=== PATIENT | female | born 1950 | race Caucasian/White ===

== ENCOUNTER 2022-03-25 17:41 | Inpatient (IN) ==
[2022-03-25] MEDS ORDERED: IOPAMIDOL 100 ML BOTTLE IV ONE (17:42)
--- NOTE | 2022-03-25 17:45 | Emergency Department Note ---
HPI General Chief complaint: Cold/Flu Symptoms Stated complaint: COVID positive Time Seen by Provider: 03/25/22 17:42 Source: patient Mode of arrival: wheelchair Limitations: no limitations History of Present Illness HPI Narrative: 72-year-old female presenting with shortness of breath and cough for the last 4 days. Patient reports difficulty breathing, worse with exertion, and nonproductive cough recently. She went to an outside clinic today and tested positive for COVID so she was sent to the ED. Patient has a history of COPD but does not wear home oxygen. She denies fever, chest pain, or leg swelling. She also has a history of CAD and is on clopidogrel. When asked if she smokes patient states "off and on". Patient states that she did receive the Moderna COVID-vaccine but has not had a booster. Related Data Home Medications Medication Instructions Recorded Confirmed aspirin 325 mg tablet 325 mg PO HS 07/24/15 04/23/19 clopidogrel 75 mg tablet 75 mg PO DAILY 07/24/15 04/23/19 diphenhydramine 25 2 tab PO HSP PRN 07/24/15 04/23/19 mg-acetaminophen 500 mg tablet fluoxetine 20 mg capsule 60 mg PO DAILY 07/24/15 04/23/19 omeprazole 40 mg capsule,delayed 40 mg PO BIDP PRN 07/24/15 04/23/19 release pravastatin 40 mg tablet 60 mg PO HS 07/24/15 04/23/19 Previous Rx's Medication Instructions Recorded albuterol sulfate 90 mcg/actuation 2 puff INH Q4HP PRN #1 inhaler 07/26/15 aerosol inhaler alprazolam 0.5 mg tablet 1 mg PO BIDP PRN #30 tab 07/26/15 ipratropium 20 mcg-albuterol 100 2 puff INH QID #1 inhaler 07/26/15 mcg/actuation mist for inhalation lorazepam 2 mg tablet 2 mg PO Q4-6HP PRN #20 tab 12/02/16 ondansetron 4 mg disintegrating 4 mg SL Q4-6HP PRN #10 tab 12/02/16 tablet alprazolam 0.25 mg tablet 0.25 mg PO TID #3 tab 11/07/21 Allergies Allergy/AdvReac Type Severity Reaction Status Date / Time No Known Drug Allergies Allergy Verified 11/07/21 10:33 Review of Systems ROS ROS Narrative: Narrative: Constitutional: Denies fever or chills Eyes: Denies vision change ENT ED: Denies throat pain Cardiovascular: Denies chest pain or palpitations Respiratory: Reports shortness of breath, cough and wheezes Gastrointestinal: Denies abdominal pain, nausea, vomiting or diarrhea Genitourinary: Denies dysuria or hematuria Musculoskeletal: Denies back pain Integumentary: Denies rash or lesions Neurological: Denies headache or weakness Psychiatric: Denies anxiety Endocrine: Denies fatigue Hematological/Lymphatic: Denies easy bruising PFSH Narrative Patient History Narrative: Narrative: Medical/Surgical/Family History All Active Problems (Updated 03/25/22 @ 19:09 by Roland Gramajo MD) Mass of upper lobe of right lung (Acute) Anxiety (Acute) Abdominal pain (Acute) COVID-19 (Acute) Hypoxia (Acute) COPD exacerbation (Acute) Anxiety (Acute) COPD (chronic obstructive pulmonary disease) (Acute) Acute exacerbation of chronic obstructive airways disease (Acute) Hypoxia (Acute) Smoker (Acute) CAD (coronary artery disease) (Acute) Gastroenteritis (Acute) Superior mesenteric artery atherosclerosis (Acute) Acute bronchitis (Acute) Left leg pain (Acute) Left leg swelling (Acute) Pain of left lower leg (Acute) Medical History Acute exacerbation of chronic obstructive airways disease Anxiety CAD (coronary artery disease) COPD (chronic obstructive pulmonary disease) Gastroenteritis Hypoxia Smoker Superior mesenteric artery atherosclerosis Social History Smoking Status: Former smoker Alcohol Intake Frequency: does not drink Substance Use: marijuana Exam Narrative Narrative: Narrative: General Limitations: no limitations General appearance: Present alert and other (In mild respiratory distress) Head Head: Present atraumatic and normocephalic Eye Eye: Present normal appearance and EOMI; Absent scleral icterus or conjunctival injection ENT ENT: Present mucous membranes moist Neck Neck: Present normal inspection, full ROM and trachea midline; Absent meningismus or lymphadenopathy Chest Chest: Present symmetric chest wall rise Respiratory Respiratory: Present respiratory distress and wheezes (Inspiratory and expiratory wheezes noted in all lung barney); Absent rales/crackles, stridor, accessory muscle use or prolonged expiratory phase Cardiovascular Cardiovascular: Present normal rhythm and tachycardia; Absent systolic murmur or diastolic murmur Adbominal Abdominal: Present soft; Absent distention, tenderness, guarding, rebound, rigidity, organomegaly or mass Extremities Extremities: Absent pretibial edema Back Back: Present normal inspection Neurological Neurological: Present alert and oriented X3; Absent motor sensory deficit Psychiatric Psychiatric: Present normal affect and normal mood Skin Skin: Present warm (WNL) and dry Course Vital Signs Vital signs: Vital Signs Temperature 97.9 F 03/25/22 17:42 Pulse Rate 121 H 03/25/22 17:42 Respiratory Rate 28 H 03/25/22 17:42 Blood Pressure 147/102 03/25/22 17:42 Pulse Oximetry (%) 82 L 03/25/22 17:42 Temperature 97.9 F 03/25/22 18:28 Pulse Rate 110 H 03/25/22 18:28 Respiratory Rate 22 03/25/22 18:28 Blood Pressure 137/71 03/25/22 18:09 Pulse Oximetry (%) 96 03/25/22 18:25 MDM MDM Narrative Medical decision making narrative: 72-year-old female presenting with cough and shortness of breath. She tested positive at an outside clinic for COVID. On arrival here she was noted to be hypoxic to the low 80s on room air. She was also tachycardic. Not on home O2. She was placed on O2 via nasal cannula with improvement in her saturations to the mid 90s. She does have diffuse wheezing on exam. IV Solu-Medrol and DuoNeb treatment ordered. Will obtain labs, EKG, chest x-ray, and reevaluate. 1907: EKG with no ischemic changes. Rapid COVID test is positive here. Chest x-ray shows no evidence of pneumonia. Labs are pending and patient may need admission for COPD exacerbation, hypoxia, and COVID 19. Patient signed out to Dr. Alessandra weaver MD. Lab Data Result diagrams: 03/25/22 18:18 03/25/22 18:18 Labs: Lab Results 03/25/22 Range/Units 18:18 WBC 10.1 (4.5-11.0) K/mcL RBC 4.33 (3.59-5.38) M/mcL Hgb 11.9 (11.2-15.7) g/dL Hct 36.3 (34.1-44.9) % MCV 83.8 (80.0-100.0) fL MCH 27.5 (26.0-34.0) pg MCHC 32.8 (31.0-36.0) g/dL RDW 15.2 H (11.5-14.5) % Plt Count 228 (140-440) K/mcL MPV 11.1 H (7.4-10.4) fL Neut % (Auto) 85.9 H (38.0-78.0) % Lymph % (Auto) 7.0 L (15.5-49.0) % [place] % (Auto) 6.9 (1.0-12.0) % Eos % (Auto) 0 (0.0-7.0) % Baso % (Auto) 0.2 (0.0-2.0) % Lymph # (Auto) 0.71 L (1.50-4.80) K/mcL [place] # (Auto) 0.70 (0.10-0.90) K/mcL Eos # (Auto) 0 (0.00-0.70) K/mcL Baso # (Auto) 0.02 (0.00-0.30) K/mcL Absolute Neutrophils 8.68 H (1.80-8.00) K/mcL ED POC Tests ED POC Tests: GUILLERMO - Influenza A Negative GUILLERMO - Influenza B Negative GUILLERMO - SARS Antigen Positive Radiology Data Radiology results reviewed: Yes I reviewed the patient's radiology results. Radiology results narrative: Ordering Physician:Roland Gramajo M.D. Date of Service:03/25/22 Procedure(s):XR chest 1V portable CLINICAL INFORMATION: Dyspnea and cough COMPARISON: None. TECHNIQUE: PA and Lateral views FINDINGS: The heart size, mediastinum and pulmonary vessels are unremarkable. Minor bibasilar atelectasis noted.. There are no effusions. The bones and soft tissues are within normal limits. IMPRESSION: Minor bibasilar atelectasis. Interpreted and Authenticated by: Silvano Friedman 03/25/22 34 34 Hogshead Stripper: <Electronically signed by Silvano Friedman M.D. in [place]> 03/25/221835 EKG Data EKG #1: EKG attestation: Yes I reviewed and interpreted this EKG. and Yes There are no EKG findings of acute coronary syndrome EKG results narrative: Sinus tachycardia at [address] elevation or depression. Interpretation: no acute changes Discharge Plan Patient/Caregiver Discharge Instructions Pt seen by CERAMICS MACHINE OPERATOR/PA only: No Clinical Impression: COVID-19, Hypoxia, COPD exacerbation Patient Disposition: Still a Patient Follow up with: Estefany Murphy MD [Primary Care Provider] - Prescriptions: No Action pravastatin 40 MG tablet 60 mg PO HS 0RF clopidogrel 75 MG tablet 75 mg PO DAILY 0RF omeprazole 40 MG capsule,delayed release(DR/EC) 40 mg PO BIDP PRN (Reason: Heartburn) 0RF fluoxetine 20 MG capsule 60 mg PO DAILY 0RF aspirin 325 MG tablet 325 mg PO HS 0RF diphenhydramine-acetaminophen 1 TAB tablet 2 tab PO HSP PRN (Reason: Pain) 0RF alprazolam 0.5 MG tablet 1 mg PO BIDP PRN (Reason: Anxiety) Qty: 30 0RF albuterol sulfate 1 PUFF inhaler 2 puff INH Q4HP PRN (Reason: Shortness Of Breath) Qty: 1 1RF Rx Instructions: USE WITH SPACER ipratropium-albuterol 1 PUFF inhaler 2 puff INH QID Qty: 1 1RF Rx Instructions: USE WITH SPACER lorazepam 2 MG tablet 2 mg PO Q4-6HP PRN (Reason: Anxiety) Qty: 20 0RF ondansetron 4 MG tablet 4 mg SL Q4-6HP PRN (Reason: Nausea And Vomiting) Qty: 10 0RF alprazolam 0.25 mg tablet 0.25 mg PO TID Qty: 3 0RF
[2022-03-25] MEDS ORDERED: methylPREDNISolone SOD SUCC 125 MG/2 ML VIAL IV ONE (17:52)
[2022-03-25] MEDS ORDERED: IPRATROPIUM/ALBUTEROL 3 ML AMPUL.NEB NEB ONE (17:52)
--- NOTE | 2022-03-25 18:39 | XRay Report ---
CLINICAL INFORMATION: Dyspnea and cough COMPARISON: None. TECHNIQUE: PA and Lateral views FINDINGS: The heart size, mediastinum and pulmonary vessels are unremarkable. Minor bibasilar atelectasis noted.. There are no effusions. The bones and soft tissues are within normal limits. IMPRESSION: Minor bibasilar atelectasis. Interpreted and Authenticated by: Silvano Friedman 03/25/22
[2022-03-25 18:52] LABS: Basophils # (Auto) 0.02 K/mcL (0.00-0.30); Basophils % (Auto) 0.2 % (0.0-2.0); Eosinophils # (Auto) 0 K/mcL (0.00-0.70); Eosinophils % (Auto) 0 % (0.0-7.0); Hematocrit 36.3 % (34.1-44.9); Hemoglobin 11.9 g/dL (11.2-15.7); Lymphocytes # (Auto) 0.71 K/mcL (1.50-4.80); Mean Cell Volume 83.8 fL (80.0-100.0); Mean Corpuscular HGB Conc 32.8 g/dL (31.0-36.0); Mean Platelet Volume 11.1 fL (7.4-10.4); Monocytes % (Auto) 6.9 % (1.0-12.0); Neutrophils % (Auto) 85.9 % (38.0-78.0); Platelet Count 228 K/mcL (140-440); RBC 4.33 M/mcL (3.59-5.38); Red Cell Distribution Width 15.2 % (11.5-14.5); WBC 10.1 K/mcL (4.5-11.0)
[2022-03-25 19:13] LABS: ALT/SGPT 37 U/L (<40); AST/SGOT 34 U/L (<32); Albumin 3.3 gm/dL (3.2-5.2); Albumin/Globulin Ratio 0.9 (1.0-2.3); Alkaline Phosphatase 99 U/L (39-117); Bilirubin,Total 0.3 mg/dL (0.1-1.0); Blood Urea Nitrogen 15 mg/dL (8-23); Carbon Dioxide 27 mmol/L (22-30); Chloride 97 mmol/L (96-108); Globulin 3.8 gm/dL (2.2-3.7); Glomerular Filtration Rate 74; Glucose 209 mg/dL (70-105)
--- NOTE | 2022-03-25 19:37 | Emergency Department Note ---
HPI General Chief complaint: Cold/Flu Symptoms Stated complaint: COVID positive Time Seen by Provider: 03/25/22 17:42 Source: patient Mode of arrival: wheelchair Limitations: no limitations History of Present Illness HPI Narrative: Narrative: Related Data Home Medications Medication Instructions Recorded Confirmed aspirin 325 mg tablet 325 mg PO HS 07/24/15 04/23/19 clopidogrel 75 mg tablet 75 mg PO DAILY 07/24/15 04/23/19 diphenhydramine 25 2 tab PO HSP PRN 07/24/15 04/23/19 mg-acetaminophen 500 mg tablet fluoxetine 20 mg capsule 60 mg PO DAILY 07/24/15 04/23/19 omeprazole 40 mg capsule,delayed 40 mg PO BIDP PRN 07/24/15 04/23/19 release pravastatin 40 mg tablet 60 mg PO HS 07/24/15 04/23/19 Previous Rx's Medication Instructions Recorded albuterol sulfate 90 mcg/actuation 2 puff INH Q4HP PRN #1 inhaler 07/26/15 aerosol inhaler alprazolam 0.5 mg tablet 1 mg PO BIDP PRN #30 tab 07/26/15 ipratropium 20 mcg-albuterol 100 2 puff INH QID #1 inhaler 07/26/15 mcg/actuation mist for inhalation lorazepam 2 mg tablet 2 mg PO Q4-6HP PRN #20 tab 12/02/16 ondansetron 4 mg disintegrating 4 mg SL Q4-6HP PRN #10 tab 12/02/16 tablet alprazolam 0.25 mg tablet 0.25 mg PO TID #3 tab 11/07/21 Allergies Allergy/AdvReac Type Severity Reaction Status Date / Time No Known Drug Allergies Allergy Verified 11/07/21 10:33 Review of Systems ROS ROS Narrative: Narrative: Constitutional: Denies fever or chills Eyes: Denies vision change ENT ED: Denies throat pain Cardiovascular: Denies chest pain or palpitations Respiratory: Reports shortness of breath, cough and wheezes Gastrointestinal: Denies abdominal pain, nausea, vomiting or diarrhea Genitourinary: Denies dysuria or hematuria Musculoskeletal: Denies back pain Integumentary: Denies rash or lesions Neurological: Denies headache or weakness Psychiatric: Denies anxiety Endocrine: Denies fatigue Hematological/Lymphatic: Denies easy bruising PFSH Narrative Patient History Narrative: Narrative: Medical/Surgical/Family History All Active Problems (Updated 03/25/22 @ 19:09 by Roland Gramajo MD) Mass of upper lobe of right lung (Acute) Anxiety (Acute) Abdominal pain (Acute) COVID-19 (Acute) Hypoxia (Acute) COPD exacerbation (Acute) Anxiety (Acute) COPD (chronic obstructive pulmonary disease) (Acute) Acute exacerbation of chronic obstructive airways disease (Acute) Hypoxia (Acute) Smoker (Acute) CAD (coronary artery disease) (Acute) Gastroenteritis (Acute) Superior mesenteric artery atherosclerosis (Acute) Acute bronchitis (Acute) Left leg pain (Acute) Left leg swelling (Acute) Pain of left lower leg (Acute) Medical History Acute exacerbation of chronic obstructive airways disease Anxiety CAD (coronary artery disease) COPD (chronic obstructive pulmonary disease) Gastroenteritis Hypoxia Smoker Superior mesenteric artery atherosclerosis Social History Smoking Status: Former smoker Alcohol Intake Frequency: does not drink Substance Use: marijuana Exam Narrative Narrative: Narrative: General Limitations: no limitations Course Vital Signs Vital signs: Vital Signs Temperature 97.9 F 03/25/22 17:42 Pulse Rate 121 H 03/25/22 17:42 Respiratory Rate 28 H 03/25/22 17:42 Blood Pressure 147/102 03/25/22 17:42 Pulse Oximetry (%) 82 L 03/25/22 17:42 Temperature 97.9 F 03/25/22 18:28 Pulse Rate 116 H 03/25/22 20:27 Respiratory Rate 28 H 03/25/22 20:27 Blood Pressure 199/108 03/25/22 20:27 Pulse Oximetry (%) 91 03/25/22 20:27 [facility] MDM Narrative Medical decision making narrative: Narrative: KAT: This patient was signed out to me by Dr. Roland Gramajo at the end of his shift and I have assumed care of and will determine disposition. Please see H&P by Dr. Watkins. In brief 72-year-old female with COVID infection and hypoxia presented to the ER. She received albuterol nebulized treatment for her wheezing and Solu-Medrol 125 mg IV for her reactive airway disease. She had pulse ox in the high 80s and requires hospitalization. Laboratory results reveal a normal white count with a normal hemoglobin. She has normal electrolytes. Procalcitonin was elevated at 0.38. Chest x-ray showed basilar atelectasis. Consult was placed to Dr. Diallo ([id number]) to discuss admission. 1936: Disc'd with Dr. Diallo. He will come down to the ER to evaluate the patient. Her pulse ox was 82% on room air when she arrived and it is 96% on [address] Diallo. Patient will be admitted. Lab Data Result diagrams: 03/25/22 18:18 03/25/22 18:18 Labs: Lab Results 03/25/22 03/25/22 03/25/22 Range/Units 18:18 18:18 18:18 WBC 10.1 (4.5-11.0) K/mcL RBC 4.33 (3.59-5.38) M/mcL Hgb 11.9 (11.2-15.7) g/dL Hct 36.3 (34.1-44.9) % MCV 83.8 (80.0-100.0) fL MCH 27.5 (26.0-34.0) pg MCHC 32.8 (31.0-36.0) g/dL RDW 15.2 H (11.5-14.5) % Plt Count 228 (140-440) K/mcL MPV 11.1 H (7.4-10.4) fL Neut % (Auto) 85.9 H (38.0-78.0) % Lymph % (Auto) 7.0 L (15.5-49.0) % [place] % (Auto) 6.9 (1.0-12.0) % Eos % (Auto) 0 (0.0-7.0) % Baso % (Auto) 0.2 (0.0-2.0) % Lymph # (Auto) 0.71 L (1.50-4.80) K/mcL [place] # (Auto) 0.70 (0.10-0.90) K/mcL Eos # (Auto) 0 (0.00-0.70) K/mcL Baso # (Auto) 0.02 (0.00-0.30) K/mcL Absolute Neutrophils 8.68 H (1.80-8.00) K/mcL D-Dimer (0.27-0.50) ug/mL VBG Lactic Acid 1.2 (0.5-2.0) mmol/L Sodium 135 (133-145) mmol/L Potassium 3.4 (3.3-5.1) mmol/L Chloride 97 (96-108) mmol/L Carbon Dioxide 27 (22-30) mmol/L Anion Gap 11.0 (8.0-16.0) BUN 15 (8-23) mg/dL Creatinine 0.8 (0.6-1.1) mg/dL GFR Calculation 74 Glucose 209 H (70-105) mg/dL Calcium 9.0 (8.6-10.4) mg/dL Ferritin (30.0-400.0) ng/mL Total Bilirubin 0.3 (0.1-1.0) mg/dL AST 34 H (<32) U/L ALT 37 (<40) U/L Alkaline Phosphatase 99 (39-117) U/L C-Reactive Protein (0.03-0.80) mg/dL Total Protein 7.1 (5.9-8.4) gm/dL Albumin 3.3 (3.2-5.2) gm/dL Globulin 3.8 H (2.2-3.7) gm/dL Albumin/Globulin Ratio 0.9 L (1.0-2.3) Procalcitonin (<0.10) ng/mL 03/25/22 03/25/22 03/25/22 Range/Units 18:18 18:18 18:18 WBC (4.5-11.0) K/mcL RBC (3.59-5.38) M/mcL Hgb (11.2-15.7) g/dL Hct (34.1-44.9) % MCV (80.0-100.0) fL MCH (26.0-34.0) pg MCHC (31.0-36.0) g/dL RDW (11.5-14.5) % Plt Count (140-440) K/mcL MPV (7.4-10.4) fL Neut % (Auto) (38.0-78.0) % Lymph % (Auto) (15.5-49.0) % [place] % (Auto) (1.0-12.0) % Eos % (Auto) (0.0-7.0) % Baso % (Auto) (0.0-2.0) % Lymph # (Auto) (1.50-4.80) K/mcL [place] # (Auto) (0.10-0.90) K/mcL Eos # (Auto) (0.00-0.70) K/mcL Baso # (Auto) (0.00-0.30) K/mcL Absolute Neutrophils (1.80-8.00) K/mcL D-Dimer 1.85 H (0.27-0.50) ug/mL VBG Lactic Acid (0.5-2.0) mmol/L Sodium (133-145) mmol/L Potassium (3.3-5.1) mmol/L Chloride (96-108) mmol/L Carbon Dioxide (22-30) mmol/L Anion Gap (8.0-16.0) BUN (8-23) mg/dL Creatinine (0.6-1.1) mg/dL GFR Calculation Glucose (70-105) mg/dL Calcium (8.6-10.4) mg/dL Ferritin 126.9 (30.0-400.0) ng/mL Total Bilirubin (0.1-1.0) mg/dL AST (<32) U/L ALT (<40) U/L Alkaline Phosphatase (39-117) U/L C-Reactive Protein 20.80 H (0.03-0.80) mg/dL Total Protein (5.9-8.4) gm/dL Albumin (3.2-5.2) gm/dL Globulin (2.2-3.7) gm/dL Albumin/Globulin Ratio (1.0-2.3) Procalcitonin 0.38 H (<0.10) ng/mL ED POC Tests ED POC Tests: GUILLERMO - Influenza A Negative GUILLERMO - Influenza B Negative GUILLERMO - SARS Antigen Positive Discharge Plan Patient/Caregiver Discharge Instructions Pt seen by ROLL CARRIER/PA only: No Clinical Impression: COVID-19, Hypoxia, COPD exacerbation Patient Disposition: Xfer As Inpt ([facility]) Condition: Fair Follow up with: Estefany Murphy MD [Primary Care Provider] - Prescriptions: No Action pravastatin 40 MG tablet 60 mg PO HS 0RF clopidogrel 75 MG tablet 75 mg PO DAILY 0RF omeprazole 40 MG capsule,delayed release(DR/EC) 40 mg PO BIDP PRN (Reason: Heartburn) 0RF fluoxetine 20 MG capsule 60 mg PO DAILY 0RF aspirin 325 MG tablet 325 mg PO HS 0RF diphenhydramine-acetaminophen 1 TAB tablet 2 tab PO HSP PRN (Reason: Pain) 0RF alprazolam 0.5 MG tablet 1 mg PO BIDP PRN (Reason: Anxiety) Qty: 30 0RF albuterol sulfate 1 PUFF inhaler 2 puff INH Q4HP PRN (Reason: Shortness Of Breath) Qty: 1 1RF Rx Instructions: USE WITH SPACER ipratropium-albuterol 1 PUFF inhaler 2 puff INH QID Qty: 1 1RF Rx Instructions: USE WITH SPACER lorazepam 2 MG tablet 2 mg PO Q4-6HP PRN (Reason: Anxiety) Qty: 20 0RF ondansetron 4 MG tablet 4 mg SL Q4-6HP PRN (Reason: Nausea And Vomiting) Qty: 10 0RF alprazolam 0.25 mg tablet 0.25 mg PO TID Qty: 3 0RF
[2022-03-25] MEDS ORDERED: REMDESIVIR 200 MG in 0.9 % SODIUM CHLORIDE 250 ML IV ONE (19:51)
--- NOTE | 2022-03-25 20:17 | Internal Med History&Physical ---
HPI History of Present Illness Patient information: Note initiated : 03/25/22 at 7:58 pm Service Date, if different from initiated Date: [] Patient: Ca Posada a 72 y/o F admitted on for COVID positive. Chief Complaint: [] History of present illness: Ms. Posada is a 72 year old F Presents to the ED from the urgent care clinic for hypoxia. Patient states she started getting ill on Monday with cough and productive cough of thick clear sputum. 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 Patient's has had worsening weakness complains of being extremely tired. Complains of increasing shortness of breath. She is wheezy. Also complained of fevers. She has chest wall pain because of her coughing. She was found to be 82% in our ED. Had a flu screen that was negative but the COVID test was positive She was vaccinated but has not had the booster. In the ED she was placed on oxygen she was tachypneic and tachycardic. Chest x-ray per my read as some interstitial markings. Patient has a history of COPD but is not on home oxygen. She has history of CAD with stents. History of lung cancer Review of Systems: Pertinent positives as above. Denies headache/chills/nausea/vomiting/ abdominal pain/diarrhea. Remaining 10 point review of system reviewed negative PFSH PFSH All Active Problems (Updated 03/25/22 @ 19:09 by Roland Gramajo MD) Mass of upper lobe of right lung (Acute) Anxiety (Acute) Abdominal pain (Acute) COVID-19 (Acute) Hypoxia (Acute) COPD exacerbation (Acute) Anxiety (Acute) COPD (chronic obstructive pulmonary disease) (Acute) Acute exacerbation of chronic obstructive airways disease (Acute) Hypoxia (Acute) Smoker (Acute) CAD (coronary artery disease) (Acute) Gastroenteritis (Acute) Superior mesenteric artery atherosclerosis (Acute) Acute bronchitis (Acute) Left leg pain (Acute) Left leg swelling (Acute) Pain of left lower leg (Acute) Medical History Acute exacerbation of chronic obstructive airways disease Anxiety CAD (coronary artery disease) COPD (chronic obstructive pulmonary disease) Gastroenteritis Hypoxia Smoker Superior mesenteric artery atherosclerosis Social History (Updated 04/23/19 @ 17:28 by Sidney Salvador PA-C) alcohol intake frequency: does not drink substance use type: marijuana MEDS/ALLERGIES Home Medications and Allergies Home Medications Medication Instructions Recorded Confirmed Type aspirin 325 mg tablet 325 mg PO HS 07/24/15 03/25/22 History clopidogrel 75 mg tablet 75 mg PO DAILY 07/24/15 03/25/22 History diphenhydramine 25 2 tab PO HSP PRN 07/24/15 03/25/22 History mg-acetaminophen 500 mg tablet fluoxetine 20 mg capsule 60 mg PO DAILY 07/24/15 03/25/22 History omeprazole 40 mg capsule,delayed 40 mg PO BIDP PRN 07/24/15 04/23/19 History release pravastatin 40 mg tablet 80 mg PO HS 07/24/15 03/25/22 History albuterol sulfate 90 mcg/actuation 2 puff INH Q4HP PRN #1 inhaler 07/26/15 03/25/22 Rx aerosol inhaler alprazolam 0.5 mg tablet 1 mg PO BIDP PRN #30 tab 07/26/15 04/23/19 Rx ipratropium 20 mcg-albuterol 100 2 puff INH QID #1 inhaler 07/26/15 04/23/19 Rx mcg/actuation mist for inhalation lorazepam 2 mg tablet 2 mg PO Q4-6HP PRN #20 tab 12/02/16 04/23/19 Rx ondansetron 4 mg disintegrating 4 mg SL Q4-6HP PRN #10 tab 12/02/16 04/23/19 Rx tablet alprazolam 0.25 mg tablet 0.25 mg PO TID #3 tab 11/07/21 Rx fluticasone furoate 100 1 puff CONTINUOUS INHALATION QDAY 03/25/22 03/25/22 History mcg-vilanterol 25 mcg/dose inhalation powder (Breo Ellipta) nitroglycerin 0.4 mg sublingual 0.4 mg SUBLINGUAL PRN PRN 03/25/22 03/25/22 History tablet (Nitrostat) pregabalin 50 mg capsule (Lyrica) 50 mg PO TID 03/25/22 03/25/22 History Allergies Allergy/AdvReac Type Severity Reaction Status Date / Time No Known Drug Allergies Allergy Verified 11/07/21 10:33 EXAM Constitutional Vitals: Temp Pulse Resp BP Pulse Ox 97.9 F 110 H 22 137/71 96 03/25/22 18:28 03/25/22 18:28 03/25/22 18:28 03/25/22 18:09 03/25/22 19:18 Exam: General: Alert, Awake, No acute Distress, obese Eyes/N/T: EOMI, PERRL, Head/Neck: neck supple, normocephalic atraumatic CV: RRR, No murmurs, normal s1/s2 Pulm: Wheezing b/l, no rales Abd: soft, nontender, +BS x4 Ext: no clubbing/cyanosis/edema Neuro: Alert, no focal deficits, moves all extremities, CN 2-12 grossly intact, symmetrical strength b/l upper/lower, sensations intact b/l upper/lower Skin: warm/dry DATA Data Completed and Pending Labs: Labs from last 24 hours 03/25/22 03/25/22 03/25/22 18:18 18:18 18:18 WBC RBC Hgb Hct MCV MCH MCHC RDW Plt Count MPV Neut % (Auto) Lymph % (Auto) [place] % (Auto) Eos % (Auto) Baso % (Auto) Lymph # (Auto) [place] # (Auto) Eos # (Auto) Baso # (Auto) Absolute Neutrophils D-Dimer Pending VBG Lactic Acid Sodium Potassium Chloride Carbon Dioxide Anion Gap BUN Creatinine GFR Calculation Glucose Calcium Ferritin Pending Total Bilirubin AST ALT Alkaline Phosphatase C-Reactive Protein Pending Total Protein Albumin Globulin Albumin/Globulin Ratio Procalcitonin 0.38 H 03/25/22 03/25/22 03/25/22 18:18 18:18 18:18 WBC 10.1 RBC 4.33 Hgb 11.9 Hct 36.3 MCV 83.8 MCH 27.5 MCHC 32.8 RDW 15.2 H Plt Count 228 MPV 11.1 H Neut % (Auto) 85.9 H Lymph % (Auto) 7.0 L [place] % (Auto) 6.9 Eos % (Auto) 0 Baso % (Auto) 0.2 Lymph # (Auto) 0.71 L [place] # (Auto) 0.70 Eos # (Auto) 0 Baso # (Auto) 0.02 Absolute Neutrophils 8.68 H D-Dimer VBG Lactic Acid 1.2 Sodium 135 Potassium 3.4 Chloride 97 Carbon Dioxide 27 Anion Gap 11.0 BUN 15 Creatinine 0.8 GFR Calculation 74 Glucose 209 H Calcium 9.0 Ferritin Total Bilirubin 0.3 AST 34 H ALT 37 Alkaline Phosphatase 99 C-Reactive Protein Total Protein 7.1 Albumin 3.3 Globulin 3.8 H Albumin/Globulin Ratio 0.9 L Procalcitonin A/P Narrative A/P Narrative: A: *AECOPD: *COVID Infection: *Acute hypoxic respiratory failure: 2/2 above *h/o Lung CA: *CAD w/stent: *Depression/anxiety: *GERD: *Obesity: BMI 39 *Tobacco abuse: She is cutting down P: -Dexa/Rem -empric abx -O2 supp(wean) -steroids (wean) -IS/Acapella, prn Nebs, RT -f/u inflammatory markers -Smoking cessation counseling > 3 minutes -ppx: lovenox / H2 full code Time Spent With Patient Time: Total time spent is greater than 50% in coordination of care (as documented) at patient's floor/unit and/or counseling patient: Total time spent with greater than 50% in coordination of care (as documented) at patient's floor/unit and/or counseling patient:: Greater than 70 minutes
[2022-03-25 20:19] LABS: Ferritin 126.9 ng/mL (30.0-400.0)
[2022-03-25] MEDS ORDERED: SENNOSIDES 1 TABLET PO PRN (21:50)
[2022-03-25] MEDS ORDERED: IPRATROPIUM/ALBUTEROL 3 ML AMPUL.NEB NEB PRN (21:50)
[2022-03-25] MEDS ORDERED: POLYETHYLENE GLYCOL 3350 17 GM PACKET PO PRN (21:50)
[2022-03-25] MEDS ORDERED: MAGNESIUM SULFATE 2 GM/50 ML BAG IV PRN (21:50)
[2022-03-25] MEDS ORDERED: ONDANSETRON 4 MG/2 ML VIAL IV PRN (21:50)
[2022-03-25] MEDS ORDERED: ACETAMINOPHEN 325 MG TABLET PO PRN (21:50)
[2022-03-25] MEDS ORDERED: POTASSIUM CHLORIDE 40 MEQ in DEXTROSE 5% IN WATER 500 ML IV PRN (21:50)
[2022-03-25] MEDS ORDERED: REMDESIVIR 100 MG in 0.9 % SODIUM CHLORIDE 250 ML IV SCH (21:50)
[2022-03-25] MEDS ORDERED: POTASSIUM CHLORIDE 20 MEQ TABLET PO PRN ×2 (21:50)
[2022-03-25] MEDS: IPRATROPIUM/ALBUTEROL 3 ML AMPUL.NEB NEB SCH (21:53)
[2022-03-25] MEDS ORDERED: NITROGLYCERIN 0.4 MG TAB.SUBL SL PRN (21:59)
[2022-03-25] MEDS ORDERED: ACETAMINOPHEN/DIPHENHYDRAMINE 1 TABLET PO PRN (21:59)
[2022-03-25 22:03] LABS: Hemoglobin A1C 7.4 % Hgb (4.0-6.0)
[2022-03-25] MEDS: DOCUSATE SODIUM 100 MG CAPSULE PO SCH (23:10)
[2022-03-25] MEDS: AZITHROMYCIN 500 MG in DEXTROSE 5% IN WATER 250 ML IV SCH (23:38)
[2022-03-25] MEDS: 0.9 % SODIUM CHLORIDE 10 ML SYRINGE IV SCH (23:39)
[2022-03-25] MEDS: FAMOTIDINE 20 MG TABLET PO SCH (23:39)
[2022-03-26] MEDS: 0.9 % SODIUM CHLORIDE 10 ML SYRINGE IV SCH ×3 (05:24→20:15)
--- NOTE | 2022-03-26 06:10 | Cat Scan Report ---
CLINICAL INFORMATION: Elevated d-dimer covid positive. Dyspnea COMPARISON: 10/15/[address] noncontrast TECHNIQUE: 80ml of Isovue-370 were injected intravenously. Using SmartPrep to maximize pulmonary artery opacification, .625mm helical slices were obtained from the lung apices through the lung bases. Following reconstruction, 2.5 mm sagittal, coronal, and axial reformations were processed. The exam was reviewed at mediastinal, lung, and bone windows. The exam was performed using radiation dose optimization techniques including, but not limited to, automated exposure control, adjustment of the mA and/or kV according to patient size and use of iterative reconstruction technique. FINDINGS: Motion artifact laterally degrades the study quality. Pulmonary parenchymal windows show moderate scattered tree-in-bud infiltrates within the right upper, right middle and both lower lobes which are new from the comparison CT 1.5 years prior. Moderate groundglass infiltrates in both paramediastinal upper lobes are also new. A pleural-based mass, in the posterior segment of the right upper lobe has actually involuted modestly since the CT 1.5 years ago indicating this is inflammation/fibrosis and not malignant. On the previous exam, it measured 2.5 x 2.[address], it is 2.3 x 1.2 cm. Mediastinal windows show the heart is mildly enlarged with heavy calcific plaque in the proximal coronary arteries particularly the left main and proximal LAD. The thoracic aorta is normal diameter with moderate fibrofatty calcific plaque. Pulmonary arteries are suboptimally opacified. There is no evidence of central emboli. Higher order pulmonary emboli cannot be excluded on basis of this study however. Esophagus is grossly normal. No mediastinal adenopathy. Thyroid is diminutive but shows no abnormality. Bone windows show mild L2 compression fracture is chronic. No other osseous abnormalities. Superior abdominal images show a stable 8 cm broad mouth epigastric hernia consisting only mesenteric fat. A 13 mm cholesterol stone is seen within the gallbladder fundus. IMPRESSION: 1. . patchy tree-in-bud infiltrates throughout both upper, right middle and both lower lobes which are new from a comparison CT 1.5 years ago. This could indicate pneumonia.: Covid positivity acknowledged. Aspiration pneumonia would be less likely. 2. A 2.2 cm pleural-based mass in the posterior segment right lower lobe shows modest involution since the CT 1.5 years ago. This should be considered inflammatory and possibly organizing into fibrosis. No evidence of pulmonary malignancy 3. No evidence of central pulmonary embolus. Study is suboptimal due to contrast bolus dynamics and motion artifact. 4. 8 cm epigastric hernia containing only mesenteric fat. This is unchanged from a study 1.5 years ago 5. 13 mm cholesterol stone in the gallbladder fundus. Interpreted and Authenticated by: Silvano Friedman 03/26/22
[2022-03-26 06:30] LABS: ALT/SGPT 42 U/L (<40); AST/SGOT 44 U/L (<32); Albumin 3.8 gm/dL (3.2-5.2); Albumin/Globulin Ratio 1.1 (1.0-2.3); Alkaline Phosphatase 111 U/L (39-117); Bilirubin,Direct < 0.2 mg/dL (0-0.3); Bilirubin,Total 0.2 mg/dL (0.1-1.0); Blood Urea Nitrogen 15 mg/dL (8-23); Calcium 9.1 mg/dL (8.6-10.4); Carbon Dioxide 25 mmol/L (22-30); Chloride 100 mmol/L (96-108); Globulin 3.5 gm/dL (2.2-3.7); Glomerular Filtration Rate 87; Glucose 238 mg/dL (70-105); Lactate Dehydrogenase 258 U/L (135-225); Phosphorous 2.7 mg/dL (2.5-4.5); Triglycerides 106 mg/dL (<150); Uric Acid 6.1 mg/dL (2.5-8.0)
[2022-03-26] MEDS: DOCUSATE SODIUM 100 MG CAPSULE PO SCH ×3 (07:53→20:43)
[2022-03-26] MEDS: ENOXAPARIN 40 MG/0.4 ML SYRINGE SQ SCH (07:53)
[2022-03-26] MEDS: PREGABALIN 25 MG CAPSULE PO SCH ×5 (07:53→20:44)
[2022-03-26] MEDS: FLUoxetine HCL 20 MG CAPSULE PO SCH (07:54)
[2022-03-26] MEDS: FLUTICASONE FUROATE VILANTEROL INH SCH (07:54)
[2022-03-26] MEDS: CLOPIDOGREL 75 MG TABLET PO SCH (07:54)
[2022-03-26] MEDS: FAMOTIDINE 20 MG TABLET PO SCH ×3 (07:54→20:45)
[2022-03-26] MEDS ORDERED: DEXTROSE 50% 50 ML VIAL IV PRN (08:13)
[2022-03-26] MEDS ORDERED: DEXTROSE 31 GM ORAL.SUSP PO PRN (08:13)
--- NOTE | 2022-03-26 08:18 | Internal Med Progress Note ---
SUBJECTIVE Subjective Patient information: Note initiated : 03/26/22 at 8:09 am Service Date, if different from initiated Date: [] Patient: Ca Posada a 72 y/o F admitted on 03/25/22 for COVID positive. Chief Complaint: [] Interval history: History of present illness: Ms. Posada is a 72 year old F Presents to the ED from the urgent care clinic for hypoxia. Patient states she started getting ill on Monday with cough and productive cough of thick clear sputum. 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 Patient's has had worsening weakness complains of being extremely tired. Complains of increasing shortness of breath. She is wheezy. Also complained of fevers. She has chest wall pain because of her coughing. She was found to be 82% in our ED. Had a flu screen that was negative but the COVID test was positive She was vaccinated but has not had the booster. In the ED she was placed on oxygen she was tachypneic and tachycardic. Chest x-ray per my read as some interstitial markings. Patient has a history of COPD but is not on home oxygen. She has history of CAD with stents. History of lung cancer 03/26 Patient says that she developed a cough and says her cough shortness of breath has not improved. Mildly tachycardic and tachypneic. She does have significant anxiety and does complain of chronic pain as well. CT read as bilateral infiltrates tree-in-bud infiltrates Review of Systems: denies headache/fever/chills/nausea/vomiting/chest or abdominal pain/diarrhea. Otherwise see above. Constitutional Vitals: Vital Signs Temp Pulse Resp BP Pulse Ox 97.4 F 95 H 24 H 151/100 95 03/26/22 04:01 03/26/22 07:01 03/26/22 07:01 03/26/22 07:01 03/26/22 07:01 Period Temp Pulse Resp BP Sys/Nunes Pulse Ox Last 24 Hr 97.4 F-97.9 F 95-121 18-41 137-199/71-156 82-98 Intake and Output 03/25/22 03/26/22 03/26/22 21:59 05:59 13:59 Intake Total 20 880 Output Total 200 Balance 20 680 Weight 98.883 kg Intake & Output: Intake & Output 03/25/22 03/26/22 03/26/22 21:59 05:59 13:59 Intake Total 20 880 Output Total 200 Balance 20 680 Weight 98.883 kg Intake: IV 20 480 Zithromax 500 mg In Dextrose 5% 250 in Water 250 ml @ 250 mls/hr IV Q24H REPLACED BY [facility] Rx#:[id number] Veklury 200 mg In Sodium 20 230 Chloride 0.9% 250 ml @ 500 mls/ hr IV ONCE ONE Rx#:[id number] Oral 400 Output: Void Amount 200 Other: Urine Appearance Clear Urine Color Dark Yellow Stool Size Moderate # Voids 1 # Bowel Movements 1 Exam: General: Alert, Awake, mild Distress, obese Eyes/N/T: EOMI, Head/Neck: neck supple, CV: RRR, No murmurs, Pulm: Wheezing b/l, no rales Abd: soft, nontender, +BS x4 Ext: no clubbing/cyanosis/edema Neuro: Alert, no focal deficits, moves all extremities, Skin: warm/dry OBJ DATA Labs CBC & Chem 7: 03/25/22 18:18 03/26/22 05:11 Labs: Abnormal Lab Results 03/26/22 03/26/22 03/26/22 05:11 05:11 05:11 RDW MPV Neut % (Auto) Lymph % (Auto) Lymph # (Auto) Absolute Neutrophils D-Dimer 1.89 H Glucose 238 H Hemoglobin A1c GGT 151 H AST 44 H ALT 42 H Lactate Dehydrogenase 258 H C-Reactive Protein 22.40 H Globulin Albumin/Globulin Ratio Procalcitonin 0.30 H 03/25/22 03/25/22 03/25/22 18:18 18:18 18:18 RDW MPV Neut % (Auto) Lymph % (Auto) Lymph # (Auto) Absolute Neutrophils D-Dimer 1.85 H Glucose Hemoglobin A1c 7.4 H GGT AST ALT Lactate Dehydrogenase C-Reactive Protein 20.80 H Globulin Albumin/Globulin Ratio Procalcitonin 03/25/22 03/25/22 03/25/22 18:18 18:18 18:18 RDW 15.2 H MPV 11.1 H Neut % (Auto) 85.9 H Lymph % (Auto) 7.0 L Lymph # (Auto) 0.71 L Absolute Neutrophils 8.68 H D-Dimer Glucose 209 H Hemoglobin A1c GGT AST 34 H ALT Lactate Dehydrogenase C-Reactive Protein Globulin 3.8 H Albumin/Globulin Ratio 0.9 L Procalcitonin 0.38 H Meds: Medications Acetaminophen (Acetaminophen 325 Mg Tablet) 650 mg PO Q6HP PRN; Protocol PRN Reason: Per Pain Protocol/Fever > 101 Albuterol/Ipratropium (Ipratropium/Albuterol 3 Ml Ampul.Neb) 3 ml NEB Q4HP PRN PRN Reason: Shortness Of Breath Albuterol/Ipratropium (Ipratropium/Albuterol 3 Ml Ampul.Neb) 3 ml NEB BID REPLACED BY [facility] Last Admin: 03/25/22 21:53 Dose: Not Given Documented by: Aspirin (Aspirin 81 Mg Tab.Chew) 81 mg PO [facility] Clopidogrel Bisulfate (Clopidogrel 75 Mg Tablet) 75 mg PO DAILY REPLACED BY [facility] Last Admin: 03/26/22 07:54 Dose: 75 mg Documented by: Docusate Sodium (Docusate Sodium 100 Mg Capsule) 100 mg PO BID REPLACED BY [facility] Last Admin: 03/26/22 07:53 Dose: Not Given Documented by: Enoxaparin Sodium (Enoxaparin 40 Mg/0.4 Ml Syringe) 40 mg SQ DAILY REPLACED BY [facility] Last Admin: 03/26/22 07:53 Dose: 40 mg Documented by: Famotidine (Famotidine 20 Mg Tablet) 20 mg PO BID REPLACED BY [facility] Last Admin: 03/26/22 07:54 Dose: 20 mg Documented by: Fluoxetine HCl (Fluoxetine Hcl 20 Mg Capsule) 60 mg PO DAILY REPLACED BY [facility] Last Admin: 03/26/22 07:54 Dose: 60 mg Documented by: Potassium Chloride 40 meq/ (Dextrose) 520 mls @ 130 mls/hr IV UD PRN PRN Reason: Potassium < 3 Magnesium Sulfate (Magnesium Sulfate) 2 gm in 50 mls @ 50 mls/hr IV UD PRN PRN Reason: Magnesium </= 1.6 Azithromycin 500 mg/ Dextrose 250 mls @ 250 mls/hr IV Q24H REPLACED BY [facility]; Protocol Stop: 03/27/22 23:59 Last Infusion: 03/26/22 02:14 Dose: Infused Documented by: REMDESIVIR 100 mg/ Sodium (Chloride) 250 mls @ 500 mls/hr IV Q24H REPLACED BY [facility] Stop: 03/27/22 14:29 Methylprednisolone Sodium Succinate (Methylprednisolone Sod Succ 40 Mg/Ml Vial) 40 mg IV Q12 REPLACED BY [facility] Last Admin: 03/26/22 07:54 Dose: 40 mg Documented by: Nitroglycerin (Nitroglycerin 0.4 Mg Tab.Subl) 0.4 mg SL PRN PRN PRN Reason: Chest Pain Ondansetron HCl (Ondansetron 4 Mg/2 Ml Vial) 4 mg IV Q4HP PRN PRN Reason: Nausea And Vomiting Fluticasone Furoate- Vilanterol [Breo Ellipta] 100/25 Mcg Inhaler 1 dose INH QDAY REPLACED BY [facility] Last Admin: 03/26/22 07:54 Dose: 1 dose Documented by: Phenyltoloxamine Citr/Acetaminophen (Acetaminophen/Diphenhydramine 1 Tablet) 2 tab PO HSP PRN PRN Reason: Pain Last Admin: 03/25/22 23:35 Dose: 2 tab Documented by: Polyethylene Glycol (Polyethylene Glycol 3350 17 Gm Packet) 17 gm PO DAILYP PRN PRN Reason: Constipation Potassium Chloride (Potassium Chloride 20 Meq Tablet) 40 meq PO UD PRN PRN Reason: Potssium is 3-3.5 Last Admin: 03/25/22 23:39 Dose: 40 meq Documented by: Potassium Chloride (Potassium Chloride 20 Meq Tablet) 40 meq PO UD PRN PRN Reason: Potassium < 3 Pregabalin (Pregabalin 25 Mg Capsule) 50 mg PO TID REPLACED BY [facility] Last Admin: 03/26/22 07:53 Dose: 50 mg Documented by: Senna (Sennosides 1 Tablet) 2 tab PO DAILYP PRN PRN Reason: Constipation Simvastatin (Simvastatin 40 Mg Tablet) 40 mg PO [facility] Sodium Chloride (0.9 % Sodium Chloride 10 Ml Syringe) 10 ml IV Q8 REPLACED BY [facility] Last Admin: 03/26/22 05:24 Dose: 10 ml Documented by: A/P Narrative A/P Narrative: A: *COVID PNA, suspect bacterial coinfection: *AECOPD: *Acute hypoxic respiratory failure: 2/2 above -on 2L NC *h/o Lung CA: *Transaminitis: 2/2 above *CAD w/stent: *Depression/Anxiety: *GERD: *Obesity: BMI 39 *DM (new dx): A1c 7.4 *Tobacco abuse: She is cutting down *chronic pain: P: -steroids (wean)/Rem -empric abx -O2 supp(wean) -IS/Acapella, prn Nebs, RT -f/u inflammatory markers -diabetic teaching, diet, SSI. Diet and lifestyle modification before initiating medication -proning/oob to chair -Smoking cessation counseling -ppx: lovenox / H2 full code Time Spent With Patient Time: Total time spent is greater than 50% in coordination of care (as documented) at patient's floor/unit and/or counseling patient: Total time spent with greater than 50% in coordination of care (as documented) at patient's floor/unit and/or counseling patient:: 35 - 50 minutes
[2022-03-26] MEDS ORDERED: methylPREDNISolone SOD SUCC 40 MG/ML VIAL IV SCH (09:00)
[2022-03-26] MEDS ORDERED: HYDROcodone/APAP 5/325MG TABLET PO PRN (09:11)
[2022-03-26] MEDS ORDERED: diphenhydrAMINE 25 MG CAPSULE PO PRN (09:22)
[2022-03-26 09:26] LABS: Basophils # (Auto) 0.02 K/mcL (0.00-0.30); Basophils % (Auto) 0.2 % (0.0-2.0); Eosinophils # (Auto) 0 K/mcL (0.00-0.70); Eosinophils % (Auto) 0 % (0.0-7.0); Hematocrit 36.3 % (34.1-44.9); Hemoglobin 11.7 g/dL (11.2-15.7); Lymphocytes % (Auto) 3.9 % (15.5-49.0); Mean Cell Volume 84.2 fL (80.0-100.0); Mean Corpuscular HGB Conc 32.2 g/dL (31.0-36.0); Monocytes # (Auto) 0.46 K/mcL (0.10-0.90); Monocytes % (Auto) 4.5 % (1.0-12.0); Neutrophils % (Auto) 91.4 % (38.0-78.0); Platelet Count 238 K/mcL (140-440); RBC 4.31 M/mcL (3.59-5.38); Red Cell Distribution Width 15.3 % (11.5-14.5); WBC 10.1 K/mcL (4.5-11.0)
[2022-03-26] MEDS: IPRATROPIUM/ALBUTEROL 3 ML AMPUL.NEB NEB SCH (09:44)
[2022-03-26] MEDS: ALPRAZolam 0.5 MG TABLET PO PRN ×2 (10:50→20:35)
[2022-03-26] MEDS: INSULIN LISPRO 1 UNIT/0.01 ML UNIT SQ SCH ×5 (12:03→20:43)
[2022-03-26] MEDS ORDERED: REMDESIVIR 100 MG in 0.9 % SODIUM CHLORIDE 250 ML IV SCH (14:00)
[2022-03-26] MEDS: AZITHROMYCIN 500 MG in DEXTROSE 5% IN WATER 250 ML IV SCH (15:35)
[2022-03-26] MEDS: predniSONE 20 MG TABLET PO SCH (16:55)
[2022-03-26] MEDS: IPRATROPIUM/ALBUTEROL SULFATE 1 PUFF INHALER INH SCH ×2 (16:56→20:15)
[2022-03-26] MEDS: ALPRAZolam 0.5 MG TABLET PO SCH ×2 (20:09→20:44)
[2022-03-26] MEDS: MELATONIN 3 MG TABLET PO SCH ×2 (20:09→20:45)
[2022-03-26] MEDS: ASPIRIN 81 MG TAB.CHEW PO SCH ×2 (20:09→20:43)
[2022-03-26] MEDS: SIMVASTATIN 40 MG TABLET PO SCH ×2 (20:10→20:44)
[2022-03-26] MEDS ORDERED: INSULIN GLARGINE, HUMAN 1 UNIT/0.01 ML SQ SCH (21:00)
[2022-03-26] MEDS ORDERED: NICOTINE 21 MG PATCH TOPICAL ONE (22:01)
[2022-03-26] MEDS ORDERED: NICOTINE 21 MG PATCH ONE (22:11)
[2022-03-27] MEDS: 0.9 % SODIUM CHLORIDE 10 ML SYRINGE IV SCH (04:13)
[2022-03-27 06:50] LABS: Basophils # (Auto) 0.09 K/mcL (0.00-0.30); Basophils % (Auto) 0.5 % (0.0-2.0); Eosinophils # (Auto) 0.13 K/mcL (0.00-0.70); Eosinophils % (Auto) 0.7 % (0.0-7.0); Hematocrit 36.1 % (34.1-44.9); Hemoglobin 11.6 g/dL (11.2-15.7); Lymphocytes # (Auto) 0.95 K/mcL (1.50-4.80); Lymphocytes % (Auto) 4.8 % (15.5-49.0); Mean Cell Volume 84.1 fL (80.0-100.0); Mean Corpuscular HGB Conc 32.1 g/dL (31.0-36.0); Mean Platelet Volume 11.3 fL (7.4-10.4); Monocytes # (Auto) 1.16 K/mcL (0.10-0.90); Monocytes % (Auto) 5.8 % (1.0-12.0); Neutrophils % (Auto) 88.2 % (38.0-78.0); Platelet Count 327 K/mcL (140-440); RBC 4.29 M/mcL (3.59-5.38); Red Cell Distribution Width 15.4 % (11.5-14.5)
[2022-03-27 07:04] LABS: ALT/SGPT 53 U/L (<40); AST/SGOT 61 U/L (<32); Albumin 3.2 gm/dL (3.2-5.2); Albumin/Globulin Ratio 0.9 (1.0-2.3); Alkaline Phosphatase 123 U/L (39-117); Bilirubin,Direct < 0.2 mg/dL (0-0.3); Bilirubin,Total < 0.2 mg/dL (0.1-1.0); Blood Urea Nitrogen 17 mg/dL (8-23); Calcium 9.4 mg/dL (8.6-10.4); Carbon Dioxide 24 mmol/L (22-30); Chloride 102 mmol/L (96-108); Globulin 3.7 gm/dL (2.2-3.7); Glomerular Filtration Rate 87; Glucose 180 mg/dL (70-105); Lactate Dehydrogenase 397 U/L (135-225); Phosphorous 3.8 mg/dL (2.5-4.5); Triglycerides 89 mg/dL (<150); Uric Acid 5.2 mg/dL (2.5-8.0)
[2022-03-27] MEDS: INSULIN LISPRO 1 UNIT/0.01 ML UNIT SQ SCH (07:33)
[2022-03-27] MEDS: predniSONE 20 MG TABLET PO SCH (07:34)
[2022-03-27] MEDS ORDERED: INSULIN GLARGINE, HUMAN 1 UNIT/0.01 ML SQ ONE (07:40)
--- NOTE | 2022-03-27 07:42 | Internal Med Progress Note ---
SUBJECTIVE Subjective Patient information: Note initiated : 03/27/22 at 7:37 am Service Date, if different from initiated Date: [] Patient: Ca Posada a 72 y/o F admitted on 03/25/22 for COVID positive. Chief Complaint: [] Interval history: History of present illness: Ms. Posada is a 72 year old F Presents to the ED from the urgent care clinic for hypoxia. Patient states she started getting ill on Monday with cough and productive cough of thick clear sputum. 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 Patient's has had worsening weakness complains of being extremely tired. Complains of increasing shortness of breath. She is wheezy. Also complained of fevers. She has chest wall pain because of her coughing. She was found to be 82% in our ED. Had a flu screen that was negative but the COVID test was positive She was vaccinated but has not had the booster. In the ED she was placed on oxygen she was tachypneic and tachycardic. Chest x-ray per my read as some interstitial markings. Patient has a history of COPD but is not on home oxygen. She has history of CAD with stents. History of lung cancer 03/26 Patient says that she developed a cough and says her cough shortness of breath has not improved. Mildly tachycardic and tachypneic. She does have significant anxiety and does complain of chronic pain as well. CT read as bilateral infiltrates tree-in-bud infiltrates 03/27 Patient refusing sliding scale insulin at times and other medications at times because they are not her home medications. Patient demanded to go home to take care of her cats. She is demanding another Combivent prescription and rescue albuterol inhaler. She is demanding the "oxygen genesis" to bring her oxygen to home. Per physical therapy she was felt to be close to baseline. Does have cough. Some shortness of breath but overall better. Some wheezing. Leukocytosis likely secondary to initiation of steroid therapy. Patient afebrile. Some inflammatory markers have increased D-dimer, but CRP and procalcitonin improving. Transaminitis mild. Review of Systems: denies headache/fever/chills/nausea/vomiting/chest or abdominal pain/diarrhea. Otherwise see above. Constitutional Vitals: Vital Signs Temp Pulse Resp BP Pulse Ox 97.4 F 101 H 16 155/97 90 03/27/22 03:00 03/27/22 03:00 03/27/22 03:00 03/27/22 03:00 03/27/22 03:00 Period Temp Pulse Resp BP Sys/Nunes Pulse Ox Last 24 Hr 97.1 F-98.2 F 101-114 16-29 152-168/89-124 90-96 Intake and Output 03/26/22 03/27/22 03/27/22 21:59 05:59 13:59 Intake Total 500 400 Balance 500 400 Weight 98.293 kg Intake & Output: Intake & Output 03/26/22 03/27/22 03/27/22 21:59 05:59 13:59 Intake Total 500 400 Balance 500 400 Weight 98.293 kg Intake: IV 500 Zithromax 500 mg In Dextrose 5% 250 in Water 250 ml @ 250 mls/hr IV Q24H [facility] Rx#:[id number] Veklury 100 mg In Sodium 250 Chloride 0.9% 250 ml @ 500 mls/ hr IV Q24H [facility] Rx#:[id number] Oral 400 Other: Meal Lunch Percent of Meal Consumed 75% Feeding Ability Independent Stool Size Smear # Voids 4 Exam: General: Alert, Awake, mild Distress, obese Eyes/N/T: EOMI, Head/Neck: neck supple, CV: RRR, No murmurs, Pulm: Wheezing b/l minimal change, no rales Abd: soft, nontender, +BS x4 Ext: no clubbing/cyanosis/edema Neuro: Alert, no focal deficits, moves all extremities, Skin: warm/dry OBJ DATA Labs CBC & Chem 7: 03/27/22 05:55 03/27/22 05:54 Labs: Abnormal Lab Results 03/27/22 03/27/22 03/27/22 05:55 05:55 05:54 WBC 20.0 H RDW 15.4 H MPV 11.3 H Neut % (Auto) 88.2 H Lymph % (Auto) 4.8 L Lymph # (Auto) 0.95 L Ware # (Auto) 1.16 H Absolute Neutrophils 17.66 H D-Dimer Glucose 180 H Hemoglobin A1c GGT 144 H AST 61 H ALT 53 H Alkaline Phosphatase 123 H Lactate Dehydrogenase 397 H C-Reactive Protein 9.70 H Globulin Albumin/Globulin Ratio 0.9 L Procalcitonin 0.18 H 03/27/22 03/26/22 03/26/22 05:54 05:11 05:11 WBC RDW MPV Neut % (Auto) Lymph % (Auto) Lymph # (Auto) Ware # (Auto) Absolute Neutrophils D-Dimer 2.57 H Glucose 238 H Hemoglobin A1c GGT 151 H AST 44 H ALT 42 H Alkaline Phosphatase Lactate Dehydrogenase 258 H C-Reactive Protein 22.40 H Globulin Albumin/Globulin Ratio Procalcitonin 0.30 H 03/26/22 03/26/22 03/25/22 05:11 05:11 18:18 WBC RDW 15.3 H MPV 12.0 H Neut % (Auto) 91.4 H Lymph % (Auto) 3.9 L Lymph # (Auto) 0.40 L Ware # (Auto) Absolute Neutrophils 9.25 H D-Dimer 1.89 H Glucose Hemoglobin A1c 7.4 H GGT AST ALT Alkaline Phosphatase Lactate Dehydrogenase C-Reactive Protein Globulin Albumin/Globulin Ratio Procalcitonin 03/25/22 03/25/22 03/25/22 18:18 18:18 18:18 WBC RDW MPV Neut % (Auto) Lymph % (Auto) Lymph # (Auto) Ware # (Auto) Absolute Neutrophils D-Dimer 1.85 H Glucose Hemoglobin A1c GGT AST ALT Alkaline Phosphatase Lactate Dehydrogenase C-Reactive Protein 20.80 H Globulin Albumin/Globulin Ratio Procalcitonin 0.38 H 03/25/22 03/25/22 18:18 18:18 WBC RDW 15.2 H MPV 11.1 H Neut % (Auto) 85.9 H Lymph % (Auto) 7.0 L Lymph # (Auto) 0.71 L Ware # (Auto) Absolute Neutrophils 8.68 H D-Dimer Glucose 209 H Hemoglobin A1c GGT AST 34 H ALT Alkaline Phosphatase Lactate Dehydrogenase C-Reactive Protein Globulin 3.8 H Albumin/Globulin Ratio 0.9 L Procalcitonin Meds: Medications Acetaminophen (Acetaminophen 325 Mg Tablet) 650 mg PO Q6HP PRN; Protocol PRN Reason: Per Pain Protocol/Fever > 101 Hydrocodone Bitart/Acetaminophen (Hydrocodone/Apap 5/325mg Tablet) 1 tab PO Q4- 6HP PRN; Protocol PRN Reason: Per Pain Protocol Albuterol/Ipratropium (Ipratropium/Albuterol 3 Ml Ampul.Neb) 3 ml NEB Q4HP PRN PRN Reason: Shortness Of Breath Last Admin: 03/26/22 13:14 Dose: 3 ml Documented by: Albuterol/Ipratropium (Ipratropium/Albuterol Sulfate 1 Puff Inhaler) 1 puff INH QID [facility] Last Admin: 03/26/22 20:15 Dose: 1 puff Documented by: Alprazolam (Alprazolam 0.5 Mg Tablet) 0.5 mg PO TIDP PRN PRN Reason: Anxiety Last Admin: 03/26/22 20:35 Dose: 0.5 mg Documented by: Alprazolam (Alprazolam 0.5 Mg Tablet) 3 mg PO HS [facility] Last Admin: 03/26/22 20:44 Dose: Not Given Documented by: Aspirin (Aspirin 81 Mg Tab.Chew) 81 mg PO HS [facility] Last Admin: 03/26/22 20:43 Dose: Not Given Documented by: Clopidogrel Bisulfate (Clopidogrel 75 Mg Tablet) 75 mg PO DAILY [facility] Last Admin: 03/26/22 07:54 Dose: 75 mg Documented by: Dextrose (Dextrose 50% 50 Ml Vial) 0 ml IV UD PRN PRN Reason: Per Sliding Scale Diagnostic Test (Pha) (Accu-Chek 1 Each Strip) 1 each FS ACHS [facility] Last Admin: 03/27/22 07:20 Dose: 1 each Documented by: Diphenhydramine HCl (Diphenhydramine 25 Mg Capsule) 25 mg PO HSP PRN PRN Reason: Insomnia Docusate Sodium (Docusate Sodium 100 Mg Capsule) 100 mg PO BID [facility] Last Admin: 03/26/22 20:43 Dose: Not Given Documented by: Enoxaparin Sodium (Enoxaparin 40 Mg/0.4 Ml Syringe) 40 mg SQ DAILY [facility] Last Admin: 03/26/22 07:53 Dose: 40 mg Documented by: Famotidine (Famotidine 20 Mg Tablet) 20 mg PO BID [facility] Last Admin: 03/26/22 20:45 Dose: Not Given Documented by: Fluoxetine HCl (Fluoxetine Hcl 20 Mg Capsule) 60 mg PO DAILY [facility] Last Admin: 03/26/22 07:54 Dose: 60 mg Documented by: Glucose (Dextrose 31 Gm Oral.Susp) 15 gm PO PRN PRN PRN Reason: Hypoglycemia Potassium Chloride 40 meq/ (Dextrose) 520 mls @ 130 mls/hr IV UD PRN PRN Reason: Potassium < 3 Magnesium Sulfate (Magnesium Sulfate) 2 gm in 50 mls @ 50 mls/hr IV UD PRN PRN Reason: Magnesium </= 1.6 Azithromycin 500 mg/ Dextrose 250 mls @ 250 mls/hr IV Q24H [facility]; Protocol Stop: 03/27/22 23:59 Last Infusion: 03/26/22 18:23 Dose: Infused Documented by: REMDESIVIR 100 mg/ Sodium (Chloride) 250 mls @ 500 mls/hr IV Q24H [facility] Stop: 03/27/22 14:29 Last Infusion: 03/26/22 14:38 Dose: Infused Documented by: Insulin Glargine (Insulin Glargine, Human 1 Unit/0.01 Ml) 10 unit SQ [facility] Last Admin: 03/26/22 20:44 Dose: Not Given Documented by: Insulin Human Lispro (Insulin Lispro 1 Unit/0.01 Ml Unit) 0 unit SQ [facility]; Protocol Last Admin: 03/27/22 07:33 Dose: 4 units Documented by: Melatonin (Melatonin 3 Mg Tablet) 6 mg PO QHS [facility] Last Admin: 03/26/22 20:45 Dose: Not Given Documented by: Nitroglycerin (Nitroglycerin 0.4 Mg Tab.Subl) 0.4 mg SL PRN PRN PRN Reason: Chest Pain Ondansetron HCl (Ondansetron 4 Mg/2 Ml Vial) 4 mg IV Q4HP PRN PRN Reason: Nausea And Vomiting Fluticasone Furoate- Vilanterol [Breo Ellipta] 100/25 Mcg Inhaler 1 dose INH QDAY [facility] Last Admin: 03/26/22 07:54 Dose: 1 dose Documented by: Phenyltoloxamine Citr/Acetaminophen (Acetaminophen/Diphenhydramine 1 Tablet) 2 tab PO HSP PRN PRN Reason: Pain Last Admin: 03/25/22 23:35 Dose: 2 tab Documented by: Polyethylene Glycol (Polyethylene Glycol 3350 17 Gm Packet) 17 gm PO DAILYP PRN PRN Reason: Constipation Potassium Chloride (Potassium Chloride 20 Meq Tablet) 40 meq PO UD PRN PRN Reason: Potssium is 3-3.5 Last Admin: 05/20/22 23:39 Dose: 40 meq Documented by: Potassium Chloride (Potassium Chloride 20 Meq Tablet) 40 meq PO UD PRN PRN Reason: Potassium < 3 Prednisone (Prednisone 20 Mg Tablet) 40 mg PO BIDCC [facility] Last Admin: 03/27/22 07:34 Dose: 40 mg Documented by: Pregabalin (Pregabalin 25 Mg Capsule) 50 mg PO TID [facility] Last Admin: 03/26/22 20:44 Dose: Not Given Documented by: Senna (Sennosides 1 Tablet) 2 tab PO DAILYP PRN PRN Reason: Constipation Simvastatin (Simvastatin 40 Mg Tablet) 40 mg PO HS [facility] Last Admin: 03/26/22 20:44 Dose: Not Given Documented by: Sodium Chloride (0.9 % Sodium Chloride 10 Ml Syringe) 10 ml IV Q8 [facility] Last Admin: 03/27/22 04:13 Dose: 10 ml Documented by: A/P Narrative A/P Narrative: A: *COVID PNA, suspect bacterial coinfection: *AECOPD: *Acute hypoxic respiratory failure: 2/2 above -on 2L NC *h/o Lung CA: *Transaminitis: 2/2 above *CAD w/stent: *Depression/Anxiety: *GERD: *Obesity: BMI 39 *DM (new dx): A1c 7.4 *Tobacco abuse: She is cutting down *chronic pain: P: -steroids (wean)/Rem -empric abx -O2 supp(wean) -IS/Acapella (refusing), prn Nebs, RT -f/u inflammatory markers -diabetic teaching, diet, SSI(pt refusing at times). Diet and lifestyle modification before initiating medication -proning/oob to chair -Smoking cessation counseling -ppx: lovenox / H2 full code Time Spent With Patient Time: Total time spent is greater than 50% in coordination of care (as documented) at patient's floor/unit and/or counseling patient: Total time spent with greater than 50% in coordination of care (as documented) at patient's floor/unit and/or counseling patient:: 25 - 35 minutes
[2022-03-27] MEDS: ENOXAPARIN 40 MG/0.4 ML SYRINGE SQ SCH (08:27)
[2022-03-27] MEDS: CLOPIDOGREL 75 MG TABLET PO SCH (08:28)
[2022-03-27] MEDS: FAMOTIDINE 20 MG TABLET PO SCH (08:28)
[2022-03-27] MEDS: DOCUSATE SODIUM 100 MG CAPSULE PO SCH (08:39)
[2022-03-27] MEDS: PREGABALIN 25 MG CAPSULE PO SCH (08:39)
[2022-03-27] MEDS: IPRATROPIUM/ALBUTEROL SULFATE 1 PUFF INHALER INH SCH (08:58)
[2022-03-27] MEDS: FLUTICASONE FUROATE VILANTEROL INH SCH (09:01)
[2022-03-27] MEDS: FLUoxetine HCL 20 MG CAPSULE PO SCH (09:02)
[2022-03-27] MEDS ORDERED: FUROSEMIDE 40 MG/4 ML VIAL IV ONE (09:44)
[2022-03-27] MEDS: AZITHROMYCIN 500 MG in DEXTROSE 5% IN WATER 250 ML IV SCH (09:47)
[2022-03-27] MEDS ORDERED: NICOTINE 21 MG PATCH TOPICAL SCH (10:00)
--- NOTE | 2022-03-27 10:57 | Discharge Summary ---
Discharge Provider Provider IMPORTANT FOLLOW-UP INFORMATION FOR PCP: Patient educated on diabetes while inpatient and referral sent for diabetic education. Patient to monitor blood glucose twice daily and bring log to PCP. Patient information: Note initiated : 03/27/22 at 10:52 am Service Date, if different from initiated Date: [] Patient: Ca Posada 72 y/o F admitted on 03/25/22 for COVID positive. Chief Complaint: [] Date of admission: 03/25/22 21:45 Discharge date: 03/27/22 Primary care physician: Estefany Murphy Consults: 03/25/22 Consult to Physician [CONS] Stat Comment: COVID hypoxia Consulting Provider: Cj Diallo Reason For Exam: Physician to Consult Discharge Meds Discharge Medications Home Medications clopidogrel 75 mg tablet 75 mg PO HS 07/24/15 [History Confirmed 03/25/22 Last Taken 12/01/16] diphenhydramine 25 mg-acetaminophen 500 mg tablet 2 tab PO HSP PRN 07/24/15 [History Confirmed 03/25/22 Last Taken 12/01/16] fluoxetine 20 mg capsule 60 mg PO DAILY 07/24/15 [History Confirmed 03/25/22 Last Taken 12/02/16] omeprazole 40 mg capsule,delayed release 40 mg PO QDAY 07/24/15 [History Confirmed 03/26/22 Last Taken 12/02/16] pravastatin 40 mg tablet 80 mg PO HS 07/24/15 [History Confirmed 03/25/22 Last Taken 12/01/16] ondansetron 4 mg disintegrating tablet 4 mg SL Q4-6HP PRN #10 tab 12/02/16 [Rx Confirmed 03/26/22 Last Taken Unknown] alprazolam 1 mg tablet 3 tab PO HS 03/25/22 [History Confirmed 03/25/22 Last Taken Unknown] fluticasone furoate 100 mcg-vilanterol 25 mcg/dose inhalation powder (Breo Ellipta) 1 puff CONTINUOUS INHALATION QDAY 03/25/22 [History Confirmed 03/25/22 Last Taken Unknown] nitroglycerin 0.4 mg sublingual tablet (Nitrostat) 0.4 mg SUBLINGUAL PRN PRN 03/25/22 [History Confirmed 03/25/22 Last Taken Unknown] pregabalin 50 mg capsule (Lyrica) See Rx Instructions .ROUTE .COMPLEX 03/25/22 [History Confirmed 03/26/22 Last Taken Unknown] alprazolam 1 mg tablet 3 tab PO HS 03/26/22 [History Confirmed 03/26/22 Last Taken Unknown] ipratropium 0.5 mg-albuterol 3 mg (2.5 mg base)/3 mL nebulization soln 1 vial CONTINUOUS NEBULIZATION QID 03/26/22 [History Confirmed 03/26/22 Last Taken Unknown] albuterol sulfate 90 mcg/actuation aerosol inhaler 2 puff INHALATION Q4HP PRN #1 inhaler 03/27/22 [Rx Last Taken Unknown] aspirin 325 mg tablet 81 mg PO HS #1 tab 03/27/22 [Rx Last Taken Unknown] blood sugar diagnostic #100 each 03/27/22 [Rx Last Taken Unknown] blood-glucose meter #1 each 03/27/22 [Rx Last Taken Unknown] cefpodoxime 200 mg tablet 200 mg PO BID #8 tab 03/27/22 [Rx Last Taken Unknown] ipratropium 20 mcg-albuterol 100 mcg/actuation mist for inhalation (Combivent Respimat) 1 puff PO QID #4 g 03/27/22 [Rx Last Taken Unknown] lancets #100 each 03/27/22 [Rx Last Taken Unknown] prednisone 10 mg tablet 40 mg PO QDAY #1 tab 03/27/22 [Rx Last Taken Unknown] COURSE Hospital Course Hospital course: History of present illness: Ms. Posada is a 72 year old F Presents to the ED from the urgent care clinic for hypoxia. Patient states she started getting ill on Monday with cough and productive cough of thick clear sputum. 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 Patient's has had worsening weakness complains of being extremely tired. Complains of increasing shortness of breath. She is wheezy. Also complained of fevers. She has chest wall pain because of her coughing. She was found to be 82% in our ED. Had a flu screen that was negative but the COVID test was positive She was vaccinated but has not had the booster. In the ED she was placed on oxygen she was tachypneic and tachycardic. Chest x-ray per my read as some interstitial markings. Patient has a history of COPD but is not on home oxygen. She has history of CAD with stents. History of lung cancer 03/26 Patient says that she developed a cough and says her cough shortness of breath has not improved. Mildly tachycardic and tachypneic. She does have significant anxiety and does complain of chronic pain as well. CT read as bilateral infiltrates tree-in-bud infiltrates 03/27 Patient refusing sliding scale insulin at times and other medications at times because they are not her home medications. Patient demanded to go home to take care of her cats. She is demanding another Combivent prescription and rescue albuterol inhaler. She is demanding the "oxygen genesis" to bring her oxygen to home. Does have cough. Some shortness of breath but overall better. Some wheezing. Leukocytosis likely secondary to initiation of steroid therapy. Patient afebrile. Some inflammatory markers have increased D-dimer, but CRP and procalcitonin improving. Transaminitis mild. Per physical therapy she was felt to be close to baseline. Respiratory therapy qualified for home oxygen. Patient told nursing she is leaving in 20 minutes. A: *COVID PNA, suspect bacterial coinfection: *AECOPD: *Acute hypoxic respiratory failure: 2/2 above *h/o Lung CA: *Transaminitis: 2/2 above *CAD w/stent: *Depression/Anxiety: *GERD: *Obesity: BMI 39 *DM (new dx): A1c 7.4 *Tobacco abuse: She is cutting down *chronic pain: P: -steroids (wean)/Rem -abx -O2 supp -diabetic teaching,Diet and lifestyle modification before initiating medication -glucometer Discharge diagnosis: COVID-pneumonia acute bacterial coinfection COPD hypoxic respite failure Secondary discharge diagnosis: Lung cancer transaminitis CAD depression anxiety GERD obesity new diagnosis ondina betes tobacco abuse pain Time Spent with Patient Time attestation: Total time spent providing and/or coordinating discharge services: Time spent: Greater than 30 minutes EXAM Constitutional Vitals: Temp Pulse Resp BP Pulse Ox 97.7 F 92 H 17 159/92 92 03/27/22 07:50 03/27/22 07:59 03/27/22 07:50 03/27/22 07:50 03/27/22 07:50 Discharge Data Data Completed and Pending Labs on day of discharge: Labs from last 24 hours 03/27/22 03/27/2222 05:56 05:55 05:55 WBC 20.0 H RBC 4.29 Hgb 11.6 Hct 36.1 MCV 84.1 MCH 27.0 MCHC 32.1 RDW 15.4 H Plt Count 327 MPV 11.3 H Neut % (Auto) 88.2 H Lymph % (Auto) 4.8 L Tucker % (Auto) 5.8 Eos % (Auto) 0.7 Baso % (Auto) 0.5 Lymph # (Auto) 0.95 L Tucker # (Auto) 1.16 H Eos # (Auto) 0.13 Baso # (Auto) 0.09 Absolute Neutrophils 17.66 H D-Dimer Sodium Potassium Chloride Carbon Dioxide Anion Gap BUN Creatinine GFR Calculation Glucose Uric Acid Calcium Phosphorus Magnesium Ferritin 174.2 Total Bilirubin Direct Bilirubin GGT AST ALT Alkaline Phosphatase Lactate Dehydrogenase C-Reactive Protein Total Protein Albumin Globulin Albumin/Globulin Ratio Triglycerides Procalcitonin 0.18 H 03/27/22 03/27/22 05:54 05:54 WBC RBC Hgb Hct MCV MCH MCHC RDW Plt Count MPV Neut % (Auto) Lymph % (Auto) Tucker % (Auto) Eos % (Auto) Baso % (Auto) Lymph # (Auto) Tucker # (Auto) Eos # (Auto) Baso # (Auto) Absolute Neutrophils D-Dimer 2.57 H Sodium 139 Potassium 4.3 Chloride 102 Carbon Dioxide 24 Anion Gap 13.0 BUN 17 Creatinine 0.7 GFR Calculation 87 Glucose 180 H Uric Acid 5.2 Calcium 9.4 Phosphorus 3.8 Magnesium 1.9 Ferritin Total Bilirubin < 0.2 Direct Bilirubin < 0.2 GGT 144 H AST 61 H ALT 53 H Alkaline Phosphatase 123 H Lactate Dehydrogenase 397 H C-Reactive Protein 9.70 H Total Protein 6.9 Albumin 3.2 Globulin 3.7 Albumin/Globulin Ratio 0.9 L Triglycerides 89 Procalcitonin Preliminary micro results at discharge 03/25/22 18:18 Blood Culture - Preliminary Blood 03/25/22 18:10 Blood Culture - Preliminary Blood Discharge Plan Patient/Caregiver Discharge Instructions Activity: increase activity as tolerated Diet: Consistent Carbohydrate Activity Restrictions/Additional Instructions: Diabetic education referral. Measure blood glucose first thing in the morning and at night before bed. Bring log to PCP. Home oxygen per RT. Prescriptions: New prednisone 10 mg tablet 40 mg PO QDAY Qty: 1 0RF Rx Instructions: Take 40mg once daily for two days then 20mg once daily x2 day then 10mg daily x2 days then 5mg x2 days and stop cefpodoxime 200 mg tablet 200 mg PO BID Qty: 8 0RF Rx Instructions: must administer with a meal/food (DME) blood sugar diagnostic Strip See Rx Instructions .ROUTE .MEDSUPPLY Qty: 100 0RF Rx Instructions: As directed (DME) lancets Misc See Rx Instructions .ROUTE .MEDSUPPLY Qty: 100 0RF Rx Instructions: As directed (DME) blood-glucose meter Kit See Rx Instructions .ROUTE .MEDSUPPLY Qty: 1 0RF Rx Instructions: As directed Continued pravastatin 40 MG tablet 80 mg PO HS 0RF clopidogrel 75 MG tablet 75 mg PO HS 0RF omeprazole 40 MG capsule,delayed release(DR/EC) 40 mg PO QDAY 0RF fluoxetine 20 MG capsule 60 mg PO DAILY 0RF diphenhydramine-acetaminophen 1 TAB tablet 2 tab PO HSP PRN (Reason: Pain) 0RF ondansetron 4 MG tablet 4 mg SL Q4-6HP PRN (Reason: Nausea And Vomiting) Qty: 10 0RF nitroglycerin [Nitrostat] 0.4 mg tablet, sublingual 0.4 mg sublingual PRN PRN (Reason: Chest Pain) 0RF pregabalin [Lyrica] 50 mg capsule See Rx Instructions .ROUTE .COMPLEX 0RF Rx Instructions: 50mg in the morning, 100mg at night. Breo Ellipta 100-25 mcg/dose blister with device 1 puff continuous inhalation QDAY 0RF alprazolam 1 mg tablet 3 tab PO HS 0RF ipratropium-albuterol 0.5 mg-3 mg(2.5 mg base)/3 mL solution for nebulization 1 vial continuous nebulization QID 0RF alprazolam 1 mg tablet 3 tab PO HS 0RF Combivent Respimat 20-100 mcg/actuation mist 1 puff PO QID Qty: 4 0RF Changed albuterol sulfate 1 PUFF inhaler 2 puff inhalation Q4HP PRN (Reason: Shortness Of Breath) Qty: 1 1RF Rx Instructions: USE WITH SPACER aspirin 325 MG tablet 81 mg PO HS Qty: 1 0RF Follow Up Plan Follow up with: Katherine,Estefany T, MD [Primary Care Provider] - Patient Disposition: Home Health Service Prognosis: Fair Overall status at discharge: patient is progressing back to baseline Discharge Orders: Discharge Order (Routine); Ordered 03/27/22 Ordered By: jC Diallo
--- NOTE | 2022-03-27 13:41 | XRay Report ---
CLINICAL INFORMATION: Covid positive. Cough COMPARISON: 03/25/2022 TECHNIQUE: PA and Lateral views FINDINGS: The heart size, mediastinum and pulmonary vessels are unremarkable. Minor bibasilar atelectasis or fibrosis noted. No definite infiltrates.. There are no effusions. The bones and soft tissues are within normal limits. IMPRESSION: No definite infiltrates. Minor bibasilar atelectasis Interpreted and Authenticated by: Silvano Friedman 03/27/22
--- NOTE | 2022-03-28 07:04 | EKG ---
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
== END 2022-03-27 13:43 | disposition home health service (06) | DRG 177 ==
LOC: ED 17:41 → ICU 21:45 → MEDSUR 03-26 10:38
PROVIDERS: ADMIT Internal Medicine; ATTEND Internal Medicine